=== PATIENT | female | born 1960 | race Caucasian/White ===

== ENCOUNTER 2017-05-25 06:17 | Observation (INO) | payer OTHER ==
[2017-05-08 13:56] VITALS: Ht 157.5 cm; Wt 72.0 kg
--- NOTE | 2017-05-08 14:24 | PAT Medication Instructions ---
Service Date May 08, 2017. Current Home Medication List Estradiol (Estrace), 1 TAB PO HS Ibuprofen Tab (Motrin), 400 MG PO Q12 PRN for Pain Medroxyprogesterone (Provera), 2.5 MG PO HS Omeprazole (Prilosec), 20 MG PO HS Rizatriptan Benzoate (Maxalt-Raw Scales Operator), 10 MG PO UD PRN for PRN Simvastatin (Zocor), 20 MG PO HS Trazodone Hcl (Trazodone), 75 MG PO HS Medication Instructions For Your Scheduled Surgery - Hold the following medications the morning of surgery: Ibuprofen Tab (Motrin), 400 MG PO Q12 PRN for Pain (otherwise okay to continue per surgeon) - Take the following medications the morning of surgery: Rizatriptan Benzoate (Maxalt-Raw Scales Operator), 10 MG PO UD PRN (may take if needed) - Take the following medications as scheduled the night before surgery: Medroxyprogesterone (Provera), 2.5 MG PO HS Omeprazole (Prilosec), 20 MG PO HS Estradiol (Estrace), 1 TAB PO HS Simvastatin (Zocor), 20 MG PO HS Trazodone Hcl (Trazodone), 75 MG PO HS Rizatriptan Benzoate (Maxalt-Raw Scales Operator), 10 MG PO UD PRN If you have any questions please call us at [phone] or [phone] or [phone]
--- NOTE | 2017-05-08 14:57 | DIAGNOSTIC IMAGING REPORT ---
CHEST 2 VIEWS ROUTINE CLINICAL HISTORY: Preoperative chest COMPARISON STUDY: No previous studies for comparison. FINDINGS: The cardiac and mediastinal contours are normal. There is no evidence of focal pulmonary consolidation. There is no evidence of failure. No pleural effusions are visualized.[ A rounded opacity towards the right lung base is felt to represent a nipple shadow. No corresponding parenchymal mass is visualized on the lateral view. IMPRESSION: No active disease in the chest. Electronically signed by: Maksim Sepulveda M.D. 05/08/2017 2:56 PM Dictated Date/Time: 05/08/2017 2:56 PM
[2017-05-08 15:11] LABS: BASO % 0.3 %; BASO ABS # 0.02 K/uL (0-0.2); EOS % 1.8 %; EOS ABS # 0.11 K/uL (0-0.5); HEMATOCRIT 41.4 % (37-47); HEMOGLOBIN 15.2 g/dL (12.0-16.0); IG# 0.02 K/uL (0.00-0.02); LYMPH % 27.3 %; LYMPH ABS # 1.64 K/uL (1.2-3.4); MEAN CELL VOLUME 92.8 fL (80-100); MEAN CORPUSCULAR HEMOGLOBIN 34.1 pg (25-34); MEAN CORPUSCULAR HGB CONC 36.7 g/dl (32-36); MEAN PLATELET VOLUME 9.3 fL (7.4-10.4); MONO % 8.7 %; MONO ABS # 0.52 K/uL (0.11-0.59); NEUT % 61.6 %; PLATELET COUNT 205 K/uL (130-400); RED CELL DISTRIBUTION WIDTH SD 40.8 fL (36.4-46.3); WHITE BLOOD COUNT 6.01 K/uL (4.8-10.8)
[2017-05-08 15:19] LABS: PTT PATIENT 24.8 SECONDS (21.0-31.0)
[2017-05-08 15:22] LABS: CALCIUM 9.1 mg/dl (8.5-10.1); CREATININE 0.76 mg/dl (0.60-1.20); POTASSIUM 4.5 mmol/L (3.5-5.1)
[2017-05-25] VITALS (16 sets, daily range): BP systolic 129–153; BP diastolic 78–87; PULSE 79–99; TEMP 36.4–37; O2SAT 92–98
[~2017-05-25] VITALS: Ht 157.5 cm; Wt 72.0 kg
[~2017-05-25 06:17] MED LIST: ESTR2 PO; IBUP-1449 PO; MEDR2.5T PO; PRLSR20 PO; RIZA10TA19 PO; SIMV20TA2 PO; TRAZ100T29 PO
[2017-05-25] MEDS ORDERED: FENTANYL CITRATE INJ 50 MCG/1 ML 2 ML VIAL ONE ×3 (06:33→09:08)
[2017-05-25] MEDS ORDERED: MIDAZOLAM HCL 1 MG/ML 2ML VIAL ONE (06:33)
[2017-05-25] MEDS ORDERED: SODIUM CHLORIDE 0.9% PF 50 ML VIAL ONE (06:54)
[2017-05-25] MEDS ORDERED: BACITRACIN 50000 UNIT VIAL ONE (06:54)
[2017-05-25] MEDS: LACTATED RINGER'S 1000ML 1,000 ML IV SCH ×2 (07:06→10:47)
--- NOTE | 2017-05-25 07:30 | History & Physical Bridge Note ---
H&P Re-Evaluation Bridge Note: I have examined the patient, reviewed the History & Physical and in the interval since the performance of the History & Physical I have noted the following changes of clinical significance: No changes noted
--- NOTE | 2017-05-25 07:31 | History and Physical ---
History & Physical Date May 25, 2017. Chief Complaint Neck and arm pain History of Present Illness The patient is a 56 year old female with complaints of neck and arm pain Additional History Hepatic Disease: No Endocrine Disorder: No Kidney Disease: No Hypertension: No Heart Disease: No Bleeding Tendencies: No Infectious Diseases: No Allergies Coded Allergies: Sulfa Antibiotics (Verified Allergy, Unknown, HIVES, 05/25/17) Home Medications Scheduled Estradiol (Estrace), 1 TAB PO HS Medroxyprogesterone (Provera), 2.5 MG PO HS Omeprazole (Prilosec), 20 MG PO HS Simvastatin (Zocor), 20 MG PO HS Trazodone Hcl (Trazodone), 75 MG PO HS Scheduled PRN Ibuprofen Tab (Motrin), 400 MG PO Q12 PRN for Pain Rizatriptan Benzoate (Maxalt-Billboard Mechanic), 10 MG PO UD PRN for PRN Physical Examination Skin: warm/dry, no rash Eyes: normal inspection, EOMI, sclerae normal ENT: normal ENT inspection, pharynx normal Head: normocephalic, atraumatic Neck: supple, no adenopathy, trachea midline Respiratory/Chest: lungs clear, normal breath sounds, no respiratory distress Cardiovascular: regular rate, rhythm, no edema, no murmur Abdomen / GI: normal bowel sounds, non tender Back: normal inspection Extremities: normal inspection, normal range of motion Neurologic/Psych: no motor/sensory deficits, alert, normal reflexes, oriented x 3 Diagnosis Cervical spinal stenosis Plan of Treatment ACDF C5 6 C67
[2017-05-25] MEDS: CEFAZOLIN 1000MG IV PUSH 7.5 ML IV SCH ×2 (07:37→10:47)
[2017-05-25] MEDS ORDERED: EpHEDrine SULFATE INJ 50 MG/ML AMP IV PRN (07:45)
[2017-05-25] MEDS ORDERED: MoRPHine SULFATE 10 MG/ML CARP/VIAL IV PRN (07:45)
[2017-05-25] MEDS ORDERED: ONDANSETRON INJ 2 MG/ML 2 ML VIAL IV PRN ×2 (07:45→10:15)
[2017-05-25] MEDS ORDERED: ATROPINE SULFATE 0.1 MG/ML 5ML SYR IV PRN (07:45)
[2017-05-25] MEDS ORDERED: HYDROmorphone INJ 2 MG/ML SYR/VIAL ONE ×2 (08:04→09:10)
[2017-05-25] MEDS ORDERED: CEFAZOLIN SOD 1 GM VIAL ONE (08:18)
[2017-05-25] MEDS ORDERED: PROPOFOL IV EMULSION 10 MG/ML 20 ML VIAL IV ONE (09:01)
[2017-05-25] MEDS ORDERED: PHENYLEPHRINE 100MCG/ML 5ML SYR ONE (09:01)
[2017-05-25] MEDS ORDERED: ONDANSETRON INJ 2 MG/ML 2 ML VIAL ONE ×2 (09:01→09:11)
[2017-05-25] MEDS ORDERED: DEXAMETHASONE SOD INJ 4 MG/ML VIAL ONE (09:01)
[2017-05-25] MEDS ORDERED: ROCURONIUM BROMIDE 10 MG/ML 5 ML VIAL IV ONE (09:01)
[2017-05-25] MEDS ORDERED: LIDOCAINE HCL 2% 2 ML VIAL (20MG/ML) ONE (09:01)
[2017-05-25] MEDS ORDERED: FLOSEAL HEMOSTATIC MATRIX 5ML TOP ONE (09:05)
[2017-05-25] MEDS ORDERED: NEOSTIGMINE METHYLSULFATE 1 MG/ML 10ML VIAL ONE (09:11)
[2017-05-25] MEDS ORDERED: GLYCOPYRROLATE INJ 0.2 MG/ML VIAL ONE (09:11)
--- NOTE | 2017-05-25 09:16 | [facility] Operative Report ---
Operative Report Operative Date May 25, 2017. Pre-Operative Diagnosis Cervical Spinal Stenosis Post-Operative Diagnosis Cervical Spinal Stenosis Procedure(s) Performed #1 anterior cervical discectomy and bilateral foraminotomies C5 6 and C6 7. #2 anterior cervical arthrodesis C5 6 and C6 7. #3 placement of cortical allograft filled with DBM 7 mm in height C6 7 C5 6. #4 application of final complete and screws from C5 to C7. Surgeon Dr. Pop Champion Payroll Assistant Surgeon(s) Aramis Ledezma PA-C Estimated Blood Loss 20ML Findings Severe spinal stenosis with herniated nucleus pulposus Specimens none per surgeon Dr. Pop Champion Anesthesia Type General Description of Procedure Patient was met with preoperatively case discussed all questions addressed. 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 All bony prominences were well-padded eyes inspected to ensure no external pressure placed upon them. This point the anterior cervical spine was prepped and draped in the normal sterile fashion. With the assistance of fluoroscopy identified the C6 vertebral body and a transverse incision was placed along the right anterior aspect overlying this region. Sharp dissection with the assistance of bipolar cautery was performed onto exposing the intertarsal spine from C5 to C7. I verified a position with fluoroscopy. Then performed a complete discectomy of C5 6 out to the uncovertebral joints bilaterally. [place] distractor pins U last assistance no visualization. Removed all posterior annular fibers longitudinal ligament and bilateral foraminotomies performed. End plates were burred to subcortical bleeding bone and a 7 mm cortical allograft filled with DBM tapped in position. I then proceeded to C67. Complete discectomy was then performed out to the uncovertebral joints bilaterally. This included removal of all posterior annular fibers and longitudinal ligament. Massive disc herniation was appreciated in the right neural foramen. An plates then burred to subcortical bleeding bone and again a 7 mm cortical allograft filled with DBM tapped in position. Distracting apparatus was removed. All anterior osteophytes produced with cortical surface. A hall plate screws applied and the assistance of fluoroscopy. The incision was then copious irrigated explored to ensure there was no damage to surrounding structures remaining bleeding. 10 round DANETTE drain inserted. The incision then closed with 2-0 Vicryl the fascia 4- 0 Monocryl for final skin closure Steri-Strips sterile dressing was placed. Patient awakened taken PACU in stable condition. Please note Aramis Ledezma was present throughout the entire procedure involved in patient positioning complex portions of the surgery and final skin closure. I attest to the content of the Intraoperative Record and any orders documented therein. Any exceptions are noted below.
[2017-05-25] MEDS ORDERED: ESMOLOL HCL 10 MG/ML 10 ML VIAL ONE (09:29)
[2017-05-25] MEDS: FENTANYL CITRATE INJ 50 MCG/1 ML 2 ML VIAL IV PRN ×3 (09:45→10:11)
--- NOTE | 2017-05-25 09:53 | DIAGNOSTIC IMAGING REPORT ---
Cervical SPINE, INTRAOPERATIVE FLUOROSCOPY HISTORY: C5-C7 ACDF. FLUOROSCOPY TIME: 11 seconds. FINDINGS: Intraoperative fluoroscopy was provided for the cervical spine. 3 fluoroscopic spot images were obtained. Anterior cervical discectomy and fusion from C5 through C7. The hardware appears intact. IMPRESSION: Fluoroscopy provided for a C5-C7 ACDF.. Electronically signed by: Sergio Elena M.D. 05/25/2017 9:52 AM Dictated Date/Time: 05/25/2017 9:49 AM
[2017-05-25] MEDS ORDERED: DO NOT ADMINISTER FLU VACCINE PRN (10:15)
[2017-05-25] MEDS ORDERED: DEXAMETHASONE INJ 8 MG in SYRINGE 0 ML IV PRN (10:15)
[2017-05-25] MEDS ORDERED: DiphenhydrAMINE HCL 50 MG/ML VIAL IV PRN (10:15)
[2017-05-25] MEDS ORDERED: CEFAZOLIN IV 1,000 MG in DEXTROSE 5% 50ML 50 ML IV SCH (10:15)
[2017-05-25] MEDS ORDERED: LORAZEPAM 0.5 MG TAB PO PRN (10:15)
[2017-05-25] MEDS ORDERED: HYDROmorphone INJ 0.5 MG/0.5 ML SYR IV PRN (10:15)
[2017-05-25] MEDS ORDERED: LORAZEPAM INJ 0.5 MG in SYRINGE 0.75 ML IV PRN (10:15)
[2017-05-25] MEDS ORDERED: MAGNESIUM HYDROXIDE SUSP 30 ML UDC PO PRN (10:15)
[2017-05-25] MEDS ORDERED: NALOXONE HCL 0.4 MG/1 ML VIAL/CARP IV PRN (10:15)
[2017-05-25] MEDS ORDERED: DO NOT ADMINISTER PNEUMOCOCCAL VACCINE PRN (10:15)
[2017-05-25] MEDS ORDERED: RACEPINEPHRINE 2.25% NEBU SOLN 0.5 ML VIAL INH PRN (10:15)
--- NOTE | 2017-05-25 10:23 | Anesthesiology Progress Note ---
Anesthesia Post Op Note Date & Time May 25, 2017 at 10:23 Vital Signs Vital Signs Past 12 Hours Date Time Temp Pulse Resp B/P (MAP) Pulse Ox O2 Delivery O2 Flow Rate FiO2 05/25/17 10:17 79 15 96 05/25/17 10:17 79 15 05/25/17 10:16 140/74 05/25/17 10:12 84 16 05/25/17 10:12 85 16 97 05/25/17 10:11 137/79 05/25/17 10:07 85 16 96 05/25/17 10:07 85 16 05/25/17 10:06 150/81 05/25/17 10:02 84 18 96 05/25/17 10:02 83 18 05/25/17 10:01 151/86 05/25/17 09:57 89 19 95 05/25/17 09:57 89 19 05/25/17 09:56 163/85 05/25/17 09:52 89 16 05/25/17 09:52 89 16 98 05/25/17 09:51 87 14 163/85 99 05/25/17 09:51 87 14 05/25/17 09:46 85 16 05/25/17 09:46 86 16 166/93 99 05/25/17 09:41 86 16 168/95 100 05/25/17 09:41 86 16 05/25/17 09:36 85 17 160/91 100 05/25/17 09:36 85 17 05/25/17 09:31 82 16 158/92 100 05/25/17 09:31 82 16 05/25/17 09:27 158/91 05/25/17 09:26 81 99 05/25/17 09:26 36.0 81 14 158/91 99 Oxymask 10 05/25/17 09:26 81 05/25/17 06:32 36.4 88 16 153/82 97 Room Air Notes Mental Status: alert / awake / arousable, participated in evaluation Pt Amnestic to Procedure: Yes Nausea / Vomiting: adequately controlled Pain: adequately controlled Airway Patency, RR, SpO2: stable & adequate BP & HR: stable & adequate Hydration State: stable & adequate Anesthetic Complications: no major complications apparent
[2017-05-25] MEDS ORDERED: ACETAMINOPHEN IV 1,000 MG in EMPTY BAG 0 ML IV PRN (12:00)
[2017-05-25] MEDS ORDERED: RXC5 PO (12:16)
--- NOTE | 2017-05-25 12:17 | Discharge Instructions ---
Discharge Instructions Date of Service May 25, 2017. Admission Reason for Admission: Cervical Spinal Stenosis C5-6, C6-7 Discharge Discharge Diagnosis / Problem: cervical stenosis Discharge Goals Goal(s): Decrease discomfort Activity Recommendations Activity Limitations: per Instructions/Follow-up section . Instructions / Follow-Up Instructions / Follow-Up ACTIVITY RECOMMENDATIONS: SELF CARE INSTRUCTIONS AFTER CERVICAL FUSIONS 1. No smoking. Smoking drastically decreases the chance of a solid fusion. 2. No bending, lifting more than 5 pounds, or twisting (roll like a log when turning in bed). 3. You may shower 3 days after surgery. Thoroughly dry wound. Do not soak in the tub. 4. Cervical collar: Must be worn at all times including sleeping. You may remove the brace only to bath, eat and if you are sitting in a recliner. 5. Please walk as much as you can for exercise. Gradually increase the distance that you walk as your endurance increases. SPECIAL CARE INSTRUCTIONS: VERY IMPORTANT TO READ AND REVIEW A. Do not take any anti-inflammatory medications (i.e. Indocin, Advil, Aspirin, Naprosyn, Aleve, Motrin, etc.) as these may inhibit the chance of a solid fusion. Tylenol is okay to take. B. Your surgical incision has been closed with a cosmetic suture under the skin that will dissolve in about 6 weeks. In 14 days, you can use a pair of clean scissors and cut the suture that is left outside of the skin at the ends of your incision. C. Complications are uncommon, but please contact us if you have any signs or symptoms of: 1. wound infection (fever higher than 102.5 degrees F, redness, separation of wound, drainage, or increasing pain from the incision) 2. blood clots in legs (pain, swelling, redness and warmth in legs) 3. urinary tract infection (fever higher than 102.5 degrees, burning upon urination or increased frequency of urination) 4. nerve problems (inability to walk on your toes or heels, numbness, loss of bowel or bladder control) 5. any other symptoms that concern you. D. Please call the office at if you have any concerns or questions about your operation or recovery. MANAGING PAIN AFTER SPINAL SURGERY 1. Narcotic medication is intended for short-term use and will be provided for surgical pain. Surgical pain usually lasts for a period of 4-6 weeks. Narcotic medication includes Percocet, Vicodin, Darvocet, Tylenol #3 or Lortab. 2. Longer-term pain is more appropriately treated with non-narcotic medication such as Tylenol ES. 3. Muscle spasm is not appropriately treated with narcotics. Muscle relaxers such as Soma, Flexeril or Skelaxin can be used along with Tylenol ES. 4. Remember that we all live with some "aches and pains". This is not unusual or uncommon after an injury or as we get older. 5. We will provide appropriate medication within the normal guidelines of their prescribed use. We will also be very cautious and aware of potential abuse and extended duration of patients' medication needs. 6. Please allow 2-3 days to process refills. Prescriptions will not be mailed but must be picked up at the office. FOLLOW UP VISIT: Keep your scheduled follow-up appointment. Any questions, please call the office at . Current Hospital Diet Patient's current hospital diet: Clear Liquid Diet Discharge Diet Recommended Diet: Regular Diet Procedures Procedures Performed: #1 anterior cervical discectomy and bilateral foraminotomies C5 6 and C6 7. #2 anterior cervical arthrodesis C5 6 and C6 7. #3 placement of cortical allograft filled with DBM 7 mm in height C6 7 C5 6. #4 application of final complete and screws from C5 to C7. Pending Studies Studies pending at discharge: no Medical Emergencies . Who to Call and When: Medical Emergencies: If at any time you feel your situation is an emergency, please call 911 immediately. . Non-Emergent Contact Non-Emergency issues call your: Primary Care Provider . "Provider Documentation" section prepared by Pop Champion. . VTE Core Measure Inpt VTE Proph given/why not?: Mario Weiss, SCD's
[2017-05-25] MEDS ORDERED: SCOPOLAMINE 1.5 MG TDSY TD SCH (12:30)
[2017-05-25] MEDS: SODIUM CHLORIDE 0.9% 1000ML 1,000 ML IV SCH (12:37)
[2017-05-25] MEDS ORDERED: HYDROmorphone INJ 1 MG/ML SYR IV PRN (12:45)
[2017-05-25] MEDS ORDERED: IV FLUIDS COMPLETED PRN (12:45)
[2017-05-25] MEDS: CHECK SCOPOLAMINE PATCH PLACEMENT SCH (16:06)
[2017-05-25] MEDS: CEFAZOLIN IV 1,000 MG in SYRINGE 2.5 ML IV SCH (16:06)
[2017-05-25] MEDS: OXYCODONE HCL IR 5 MG TAB (IMMEDIATE RELEASE) PO PRN ×2 (18:45→23:11)
[2017-05-25] MEDS ORDERED: PANTOprazole SOD 40 MG TAB PO SCH (21:00)
[2017-05-25] MEDS ORDERED: ESTRADIOL 1 MG TAB PO SCH (21:00)
[2017-05-25] MEDS ORDERED: TRAZODONE HCL 50 MG TAB PO SCH (21:00)
[2017-05-25] MEDS ORDERED: SIMVASTATIN 20 MG TAB PO SCH (21:00)
[2017-05-25] MEDS: DOCUSATE SODIUM 100 MG CAP PO SCH (21:23)
[2017-05-25] MEDS ORDERED: NURSING VERBAL MED ORDER ONE (21:30)
[2017-05-25] MEDS ORDERED: RIZATRIPTAN BENZ (MAXALT-MLT) 10 MG TAB PO PRN (21:30)
[2017-05-26] VITALS (10 sets, daily range): BP systolic 99–135; BP diastolic 65–79; PULSE 81–96; TEMP 36.4–37.1; O2SAT 93–95
[2017-05-26] MEDS: CEFAZOLIN IV 1,000 MG in SYRINGE 2.5 ML IV SCH ×2 (00:05→08:49)
[2017-05-26] MEDS: CHECK SCOPOLAMINE PATCH PLACEMENT SCH ×2 (00:10→08:00)
[2017-05-26] MEDS: SODIUM CHLORIDE 0.9% 1000ML 1,000 ML IV SCH (00:57)
[2017-05-26] MEDS: OXYCODONE HCL IR 5 MG TAB (IMMEDIATE RELEASE) PO PRN ×2 (04:08→08:52)
[2017-05-26] MEDS: DOCUSATE SODIUM 100 MG CAP PO SCH (08:49)
--- NOTE | 2017-05-26 09:17 | Discharge Summary ---
Orthopedic Discharge Summary Admission Date/Reason May 25, 2017 at 07:20 Cervical Spinal Stenosis C5-6, C6-7. Discharge Date/Disposition May 26, 2017 Home Diagnosis Principal Diagnosis: Cervical spinal stenosis with acute disc herniation Admission Physical Exam As per Admitting History & Physical. Hospital Course Patient underwent anterior discectomy and fusion tolerated as well as taken to the orthopedic floor postoperatively. Postoperatively she was swallowing well no hoarseness. Her arm symptoms markedly improved. DANETTE drain decreased properly. Subsequently discharged home. Discharge orders and instructions found in the chart for further review. Discharge Instructions Please refer to the electronic Patient Visit Report (Discharge Instructions) for additional information.
[2017-05-27] MEDS ORDERED: BISACODYL 10 MG SUPP PR PRN (06:00)
[2017-05-27] MEDS ORDERED: BISACODYL 5 MG TABEC PO PRN (06:00)
[2017-05-28] MEDS ORDERED: POLYETHYLENE (MIRALAX) 17 GM PACK PO SCH (09:00)
== END 2017-05-26 12:45 | disposition home or self-care (01) ==
LOC: C.ACU 06:17 → C.3E 07:20 → ENRESERV 10:21
PROVIDERS: ADMIT Orthopaedic Surgery Orthopaedic Surgery of the Spine; ATTEND Orthopaedic Surgery Orthopaedic Surgery of the Spine
DX: M48.02 Spinal stenosis, cervical region (principal); R01.1 Cardiac murmur, unspecified; E78.00 Pure hypercholesterolemia, unspecified; K21.9 Gastro-esophageal reflux disease without esophagitis; E66.9 Obesity, unspecified; E78.5 Hyperlipidemia, unspecified; Z88.2 Allergy status to sulfonamides